=== PATIENT | female | born 1990 | race Caucasian/White ===

== ENCOUNTER 2016-09-25 13:54 | Observation (INO) | payer OTHER ==
[~2016-09-25] VITALS: Ht 154.9 cm; Wt 88.6 kg
[2016-09-25 14:42] LABS: HEMOGLOBIN 12.1 g/dL (11.7-16.4)
[2016-09-25 14:55] LABS: BLOOD UREA NITROGEN 6 mg/dL (7-18)
[2016-09-25 15:04] LABS: ACETAMINOPHEN < 2 mcg/mL (10-30)
[2016-09-25 15:05] LABS: DAU SCREEN DISCLAIMER
[2016-09-25 15:50] LABS: HCG UR OBC PASS
[2016-09-25 15:53] LABS: ASPARTATE AMINO TRANSFERASE 19 U/L (15-37)
[2016-09-25] MEDS ORDERED: ZIPRASIDONE 20MG CAPSULE ONE (16:45)
[2016-09-25] MEDS ORDERED: DIAZEPAM 5 MG TABLET ONE (16:47)
[2016-09-25] MEDS: ZIPRASIDONE 20MG CAPSULE PO SCH (16:52)
[2016-09-25] MEDS ORDERED: DIAZEPAM 5 MG TABLET PO ONE (17:00)
[2016-09-25] MEDS ORDERED: ONDANSETRON ODT 4 MG PO PRN (17:30)
[2016-09-25] MEDS ORDERED: DOCUSATE 100 MG CAPSULE PO PRN (17:30)
[2016-09-25] MEDS: MELATONIN 5 MG TABLET PO SCH (21:29)
[2016-09-25] MEDS: OLANZAPINE 5 MG TABLET PO PRN (21:29)
[2016-09-26] MEDS: OLANZAPINE 5 MG TABLET PO PRN ×2 (02:21→12:34)
[2016-09-26 02:25] VITALS: BP 118/80
[2016-09-26] MEDS ORDERED: ZIPRASIDONE 20MG CAPSULE PO ONE (03:30)
[2016-09-26] MEDS: HYDROcodone/APAP 5/325 TABLET PO PRN ×3 (05:02→21:00)
[2016-09-26 07:30] VITALS: BP 120/76
[2016-09-26] MEDS: ZIPRASIDONE 20MG CAPSULE PO SCH (09:00)
[2016-09-26] MEDS ORDERED: OLANZAPINE 5 MG TABLET PO SCH (14:00)
[2016-09-26] MEDS ORDERED: OLANZAPINE 5 MG TABLET PO ONE (14:00)
[2016-09-26] MEDS: OLANZAPINE 10 MG TABLET PO PRN (19:28)
[2016-09-26 19:29] VITALS: BP 130/86
[2016-09-26] MEDS: MELATONIN 5 MG TABLET PO SCH (21:00)
[2016-09-27] MEDS: OLANZAPINE 10 MG TABLET PO PRN ×3 (04:20→22:56)
[2016-09-27 07:40] VITALS: BP 125/91
[2016-09-27] MEDS: HYDROcodone/APAP 5/325 TABLET PO PRN ×2 (09:09→22:56)
[2016-09-27] MEDS ORDERED: DIAZEPAM 5 MG TABLET PO PRN (14:00)
[2016-09-27] MEDS ORDERED: ARIPIPRAZOLE 15 MG TABLET PO ONE (15:13)
[2016-09-27] MEDS: DIAZEPAM 5 MG TABLET PO PRN (17:56)
[2016-09-27 19:54] VITALS: BP 129/84
[2016-09-27] MEDS: MELATONIN 5 MG TABLET PO SCH (21:00)
[2016-09-28] MEDS ORDERED: ZIPRASIDONE 20 MG INJ IM ONE ×2 (03:30→09:25)
[2016-09-28] MEDS: HYDROcodone/APAP 5/325 TABLET PO PRN (08:07)
[2016-09-28 08:08] VITALS: BP 112/67
[2016-09-28] MEDS: DIAZEPAM 5 MG TABLET PO PRN ×2 (08:47→09:16)
[2016-09-28] MEDS ORDERED: ARIPIPRAZOLE 15 MG TABLET PO SCH (09:00)
[2016-09-28] MEDS ORDERED: ACETAMINOPHEN 325 MG TABLET PO PRN (13:30)
[2016-09-28] MEDS ORDERED: CARBAMAZEPINE 200 MG TABLET PO ONE (15:06)
[2016-09-28] MEDS ORDERED: OLANZAPINE 10 MG TABLET PO PRN (15:30)
[2016-09-28] MEDS ORDERED: OLANZAPINE 10 MG INJ IM PRN (15:30)
[2016-09-28] MEDS ORDERED: CARBAMAZEPINE 200 MG TABLET PO SCH (21:00)
== END 2016-09-28 16:49 ==
LOC: ED 16:53 → INTOOBSV 16:55 → EDIP 16:55 → ED 17:04 → 3E 22:40
PROVIDERS: ADMIT Internal Medicine; ATTEND Internal Medicine
DX: F22 Delusional disorders (principal); F31.9 Bipolar disorder, unspecified; D72.829 Elevated white blood cell count, unspecified; Z91.14 Patient's other noncompliance with medication regimen; Z91.19 Patient's noncompliance with other medical treatment and regimen; E66.9 Obesity, unspecified
CPT/HCPCS: 36415; 80048; 80076; 80178; 80307; 80329; 81003; 81025; 82040; 84703; 85025; 93005; 96372; 99285; G0378; J3486; G0480